=== PATIENT | male | born 1980 | race Caucasian/White ===

== ENCOUNTER 2016-12-24 23:13 | Emergency (ER) | payer SELFPAY | END 2016-12-25 01:05 | disposition home or self-care (01) | LOC: FER 23:13 | DX: L03.115 Cellulitis of right lower limb (principal) | CPT/HCPCS: J1885 ==

== ENCOUNTER 2017-01-12 18:13 | Emergency (ER) | payer OTHER ==
[2017-01-12 18:53] LABS: BASOPHIL 0.2 % (0-2); EOSINOPHIL 2.7 % (0-5); HCT 36.3 % (42.0-52.0); HGB 12.2 g/dl (13.2-18.0); LYMPHOCYTE 24.2 % (15-48); MCH 28.8 pg (25.0-31.0); MCHC 33.6 g/dL (32.0-36.0); MCV 85.6 fL (78.0-100.0); NEUTROPHIL 59.9 % (41-80); PLT 224 K/uL (150-400); RBC 4.24 M/uL (4.70-6.00); RDW 12.6 % (11.5-14.0); WBC 5.5 K/uL (4.0-10.5)
[2017-01-12 19:08] LABS: ALBUMIN 3.6 g/dL (3.5-5.0); BILIRUBIN - TOTAL 0.4 mg/dL (0.1-1.0); CREATININE 0.7 mg/dL (0.7-1.2); GLOBULIN (CALCULATION) 2.6 g/dL (2.2-4.2); POTASSIUM 3.5 mmol/L (3.5-5.1); TOTAL PROTEIN 6.2 g/dL (6.4-8.3)
== END 2017-01-12 20:04 | disposition home or self-care (01) ==
LOC: FER 18:13
PROVIDERS: Nurse Practitioner
DX: R60.0 Localized edema (principal); F17.210 Nicotine dependence, cigarettes, uncomplicated
CPT/HCPCS: 36415; 80053; 85025; 99284